=== PATIENT | female | born 1950 | race Caucasian/White ===

== ENCOUNTER 2019-05-10 02:06 | Emergency (ER) | payer OTHER ==
[~2019-05-10] VITALS: Ht 152.4 cm; Wt 68.9 kg
--- NOTE | 2019-05-10 02:09 | NUR ---
PT MELISA ALS. TAKEN TO BED 7
[2019-05-10] MEDS ORDERED: DEXTROSE 50% 50 ML SYR IVP ONE ×2 (02:10→02:11)
[2019-05-10 02:25] VITALS: BP 156/94
--- NOTE | 2019-05-10 02:25 | NUR ---
69 Y/O FEMALE BIBA WITH REPORTS OF WAKING UP ALTERED PER FAMILY. BS ON SCENE 43. BS TAKEN UPON ARRIVAL 63. A/OX4 FOLLOWS COMMANDS; BREATHING UNLABORED AND SYMMETRICAL. ABLE TO AMBULATE. ERMD MADE AWARE OF STATUS. SIDE RAILSX1. WILL CONTINUE TO MONITOR. PMH:ASTHMA RX:ALBUTEROL NKDA
[2019-05-10 02:33] LABS: BASOPHILS % (AUTO) 0.5 % (0.0-2.0); EOSINOPHILS # (AUTO) 0.4 K/uL (0-0.4); EOSINOPHILS % (AUTO) 5.1 % (0.0-4.0); HEMATOCRIT 32.8 % (36-48); HEMOGLOBIN 10.8 g/dL (12.0-16.0); LYMPHOCYTES # (AUTO) 2.6 K/uL (2.5-16.5); LYMPHOCYTES % (AUTO) 29.9 % (20.5-51.1); MEAN CORPUSCULAR HEMOGLOBIN 30 pg (27-31); MEAN CORPUSCULAR HGB CONC 33 g/dL (33-37); MEAN CORPUSCULAR VOLUME 90.9 fL (80-94); MONOCYTES # (AUTO) 0.4 K/uL (0.8-1.0); MONOCYTES % (AUTO) 4.5 % (1.7-9.3); NEUTROPHILS # (AUTO) 5.3 K/uL (1.8-7.7); PLATELET COUNT (AUTO) 260 K/uL (140-450); RED BLOOD CELL COUNT(AUTO) 3.61 MIL/uL (4.20-5.40); RED CELL DISTRIBUTION WIDTH 13.9 % (11.6-13.7); WHITE BLOOD COUNT (AUTO) 8.9 K/uL (4.8-10.8)
[2019-05-10 02:43] LABS: ANION GAP 13.7 (8-16); CARBON DIOXIDE 26.1 mmol/L (21-32); CREATININE 1.2 mg/dL (0.6-1.3); POTASSIUM 3.8 mmol/L (3.5-5.1)
[2019-05-10] MEDS ORDERED: NACL 0.9% 1,000 ML IV ONE (02:50)
[2019-05-10 02:58] LABS: ALBUMIN 2.7 g/dL (3.4-5.0); TOTAL BILIRUBIN 0.2 mg/dL (0.0-1.0)
[2019-05-10 03:29] LABS: APPEARANCE,URINE CLEAR (CLEAR); BILIRUBIN,URINE NEGATIVE (NEGATIVE); BLOOD, URINE 1+ (NEGATIVE); COLOR,URINE YELLOW (YELLOW); LEUKOCYTE ESTERASE ,URINE NEGATIVE (NEGATIVE); NITRITE, URINE NEGATIVE (NEGATIVE); UGLUCOSE 2+ (NEGATIVE)
--- NOTE | 2019-05-10 03:39 | NUR ---
[facility] in [facility] - 05/10/19 at 0340 by BAN FLU SWAB COLLECTED AND SENT TO LAB
[2019-05-10 03:41] LABS: RBC,URINE 0-5 /HPF (0-5); WBC,URINE 0-5 /HPF (0-5)
--- NOTE | 2019-05-10 05:15 | NUR ---
PATIENT SITTING QUIETLY IN BED. WILL CONTINUE TO MONITOR.
[2019-05-10 06:00] VITALS: BP 81/94
--- NOTE | 2019-05-10 06:00 | NUR ---
Patient discharged with v/s stable. Written and verbal after care instructions given and explained. Patient verbalized understanding. Ambulatory with steady gait. All questions addressed prior to discharge. Advised to follow up with PMD.
== END 2019-05-10 06:00 | disposition home or self-care (01) ==
LOC: MED 02:06
DX: E11.649 Type 2 diabetes mellitus with hypoglycemia without coma (principal); E86.0 Dehydration; R41.82 Altered mental status, unspecified
CPT/HCPCS: 36415; 71045; 80053; 81001; 82948; 83605; 83880; 84484; 85025; 87040; 87086; 93005; 96361; 96374; 99284; Q0092